=== PATIENT | female | born 1980 | race Caucasian/White ===

== ENCOUNTER 2018-05-11 19:14 | Inpatient (IN) | payer MEDICAID ==
[~2018-05-11] VITALS: Ht 172.7 cm; Wt 86.2 kg
[2018-05-11] MEDS ORDERED: DEXT 5%/LR + PITOCIN 20UNITS/L 1,000 ML IV SCH ×2 (19:19→22:09)
[2018-05-11] MEDS ORDERED: BUTORPHANOL TARTRATE 2 MG/ML VIAL IV PRN (19:30)
[2018-05-11] MEDS ORDERED: CARBOPROST TROMETHAMINE 250 MCG/ML AMPUL IM PRN (19:30)
[2018-05-11] MEDS ORDERED: METHYLERGONOVINE MALEATE 0.2 MG/ML IM PRN (19:30)
[2018-05-11] MEDS ORDERED: LIDOCAINE HCL 1% 20ML VIAL (Pyxis) INJ INFIL SCH (19:30)
[2018-05-11] MEDS ORDERED: NALOXONE HCL 0.4 MG/ML 1ML VIAL IM PRN (19:30)
[2018-05-11] MEDS ORDERED: MISOPROSTOL 100MCG TABLET VG SCH (19:30)
[2018-05-11 20:26] LABS: CLARITY URINE CLEAR (CLEAR); COLOR URINE YELLOW (YELLOW); KETONES URINE NEGATIVE (NEGATIVE); LEUKOCYTE ESTERASE URINE TRACE (NEGATIVE); NITRITE URINE NEGATIVE (NEGATIVE); OCCULT BLOOD URINE 3+ (NEGATIVE); PH URINE 5.5 (4.5-8.0); PROTEIN URINE NEGATIVE (NEGATIVE); SPECIFIC GRAVITY URINE 1.014 (1.005-1.030); UROBILINOGEN URINE 0.2 E.U./dL (0.2-1.0)
[2018-05-11 20:27] LABS: BASOPHILS % 0.3 % (0.0-2.0); EOSINOPHILS % 1.7 % (0.0-5.0); HEMATOCRIT. 40.6 % (36.0-48.0); HEMOGLOBIN. 13.8 g/dL (12.0-16.0); MEAN CORPUSCULAR HEMOGLOBIN 32.3 pg (28.0-32.0); MEAN CORPUSCULAR VOLUME 95.3 fL (81.0-99.0); MEAN PLATELET VOLUME 9.5 fl (7.4-10.4); MONOCYTES % 9.1 % (2.0-8.0); NEUTROPHILS % 66.9 % (40.0-76.0); PLATELET 168 x1000/uL (130-400); RED BLOOD CELL COUNT 4.27 mill/uL (4.2-5.4); RED CELL DISTRIBUTION WIDTH 14.2 % (11.6-14.6)
[2018-05-11 20:32] LABS: PARTIAL THROMBOPLASTIN TIME 28.2 sec (23.4-31.0); PROTHROMBIN TIME 9.6 sec (9.1-11.1)
[2018-05-11 20:34] LABS: *AMPHETAMINES SCREEN URINE NEGATIVE (NEGATIVE); *BARBITURATES SCREEN URINE NEGATIVE (NEGATIVE); *BENZODIAZEPINES SCREEN URINE NEGATIVE (NEGATIVE)
[2018-05-11 20:35] LABS: *COCAINE SCREEN URINE NEGATIVE (NEGATIVE); CANNABINOID URINE SCREEN NEGATIVE (NEGATIVE); METHADONE URINE SCREEN NEGATIVE (NEGATIVE); OPIATES URINE SCREEN NEGATIVE (NEGATIVE); PHENCYCLIDINE URINE SCREEN NEGATIVE (NEGATIVE)
[2018-05-11 21:13] LABS: HEPATITIS B SURFACE ANTIGEN NEGATIVE
[2018-05-11] MEDS ORDERED: IBUPROFEN 400MG TABLET PO PRN (22:15)
[2018-05-11] MEDS ORDERED: BENZOCAINE/LANOLIN/ALOE VERA SPRAY TOP PRN (22:15)
[2018-05-11] MEDS ORDERED: BISACODYL 10MG SUPP PR PRN (22:15)
[2018-05-11] MEDS ORDERED: ACETAMINOPHEN WITH CODEINE 300/30MG TABLET PO PRN ×2 (22:15)
[2018-05-11] MEDS ORDERED: GLYCERIN/WITCH HAZEL LEAF MEDICATED PAD TOP PRN (22:15)
[2018-05-11 22:30] VITALS: BP 116/65
[2018-05-11] MEDS: IBUPROFEN 800MG TABLET PO PRN (23:00)
[2018-05-11 23:06] VITALS: BP 117/69
[2018-05-11 23:30] VITALS: BP 105/71
[2018-05-11 23:35] VITALS: BP 99/61
[2018-05-11 23:45] VITALS: BP 97/80
[2018-05-11 23:50] VITALS: BP 100/56
[2018-05-12] MEDS: IBUPROFEN 800MG TABLET PO PRN (06:15)
[2018-05-12 07:16] LABS: BASOPHILS % 0.3 % (0.0-2.0); EOSINOPHILS % 0.6 % (0.0-5.0); HEMOGLOBIN. 11.8 g/dL (12.0-16.0); MEAN CORPUSCULAR HEMOGLOBIN 32.1 pg (28.0-32.0); MEAN CORPUSCULAR VOLUME 95.2 fL (81.0-99.0); MEAN PLATELET VOLUME 9.3 fl (7.4-10.4); MONOCYTES % 9.1 % (2.0-8.0); PLATELET 168 x1000/uL (130-400); RED BLOOD CELL COUNT 3.68 mill/uL (4.2-5.4); RED CELL DISTRIBUTION WIDTH 14.4 % (11.6-14.6)
[2018-05-12 08:00] VITALS: BP 94/63
[2018-05-12] MEDS ORDERED: PRENATAL VIT/FE FUMARATE/FA TABLET PO SCH (09:00)
[2018-05-12] MEDS ORDERED: FENTANYL CITRATE/PF 50MCG/ML 2ML VIAL ONE ×2 (14:53→15:45)
[2018-05-12] MEDS ORDERED: MIDAZOLAM HCL 2 MG/2 ML VIAL ONE (14:53)
[2018-05-12] MEDS ORDERED: BUPIVACAINE HCL/DEXTROSE/PF 0.75% 2ML AMP INJ ONE (14:54)
[2018-05-12] MEDS ORDERED: PROPOFOL 200MG/20ML VIAL IV ONE (16:31)
[2018-05-12 20:10] VITALS: BP 105/72
[2018-05-12 20:40] VITALS: BP 112/75
[2018-05-12] MEDS: MAGNESIUM/ALUMINUM HYDROXIDE/SIMETHICONE 30ML UDC PO SCH (21:03)
[2018-05-12] MEDS: SIMETHICONE 80MG TABLET CHEW PO SCH (21:03)
[2018-05-12 21:10] VITALS: BP 106/71
[2018-05-13 00:10] VITALS: BP 111/75
[2018-05-13 04:00] VITALS: BP 107/74
[2018-05-13 08:00] VITALS: BP 103/69
[2018-05-13] MEDS: IBUPROFEN 800MG TABLET PO PRN (11:40)
[2018-05-13] MEDS: SIMETHICONE 80MG TABLET CHEW PO SCH (11:40)
[2018-05-13] MEDS: MAGNESIUM/ALUMINUM HYDROXIDE/SIMETHICONE 30ML UDC PO SCH (11:41)
== END 2018-05-13 12:00 | disposition home or self-care (01) | DRG 560 ==
LOC: L&D 19:14 → OBSVTOIN 19:14 → 7EST PP/OB 21:50
PROVIDERS: ADMIT Obstetrics & Gynecology; ATTEND Obstetrics & Gynecology
PROC: 10E0XZZ Delivery of Products of Conception, External Approach (ICD-10-PCS; principal; 2018-05-11 20:37)
DX: O80 Encounter for full-term uncomplicated delivery (principal); Z37.0 Single live birth; Z3A.39 39 weeks gestation of pregnancy; Z88.0 Allergy status to penicillin
CPT/HCPCS: 36415; 71045; 80305; 86592; 86703; 86762; 86850; 86900; 87340; 88302; 93005; 99281; G0378; J2250; J2590; J2704; J3010; J3490

== ENCOUNTER 2023-06-01 18:57 | Emergency (ER) | payer MEDICAID ==
[~2023-06-01] VITALS: Ht 162.6 cm; Wt 84.4 kg
[2023-06-01 19:13] VITALS: BP 145/100; PULSE 79; RESP 16; TEMP 98.2; O2SAT 100
[2023-06-01 20:59] LABS: BASOPHILS % 0.6 % (0.0-2.0); EOSINOPHILS % 2.4 % (0.0-5.0); HEMATOCRIT. 38.4 % (36.0-48.0); HEMOGLOBIN. 12.8 g/dL (12.0-16.0); LYMPHOCYTES % 13.2 % (20.0-50.0); MEAN CORPUSCULAR HEMOGLOBIN 30.4 pg (28.0-32.0); MEAN CORPUSCULAR HGB CONC 33.3 g/dL (31.0-37.0); MEAN CORPUSCULAR VOLUME 91.3 fL (81.0-99.0); MEAN PLATELET VOLUME 8.1 fl (7.4-10.4); MONOCYTES % 6.5 % (2.0-8.0); NEUTROPHILS % 77.3 % (40.0-76.0); PLATELET 249 x1000/uL (130-400); RED CELL DISTRIBUTION WIDTH 13.6 % (11.6-14.6); WHITE BLOOD COUNT 9.9 x1000/uL (4.5-11.0)
[2023-06-01 21:13] LABS: ALANINE AMINOTRANSFERASE 8 IU/L (10-49); ALBUMIN 4.2 g/dL (3.2-4.8); ASPARTATE AMINOTRANSFERASE 13 IU/L (<34); BILIRUBIN TOTAL 0.3 mg/dL (0.1-1.0); CALCIUM 9.1 mg/dL (8.7-10.4); CARBON DIOXIDE 27 mEq/L (21-32); CHLORIDE 105 mEq/L (98-107); CREATININE 0.6 mg/dL (0.6-1.0); GLUCOSE 105 mg/dL (70-105); PROTEIN TOTAL 7.7 g/dL (6.0-8.3); SODIUM 138 mEq/L (136-145); UREA NITROGEN BLOOD 11 mg/dL (9-23)
[2023-06-01 21:16] LABS: TROPONIN I HIGH SENSITIVITY < 4 ng/L (3.0-34)
[2023-06-01] MEDS ORDERED: P50 MT (21:22)
[2023-06-01] MEDS ORDERED: AZIT250T12 MT (21:22)
== END 2023-06-01 22:45 | disposition home or self-care (01) ==
LOC: ER 18:57
DX: J06.9 Acute upper respiratory infection, unspecified (principal); M79.602 Pain in left arm
CPT/HCPCS: 36415; 71045; 80053; 84484; 85025; 93005; 99285